=== PATIENT | male | born 1980 | race African-American/Black ===

== ENCOUNTER 2018-06-10 08:32 | Emergency (ER) | payer OTHER ==
[~2018-06-10] VITALS: Ht 185.4 cm; Wt 86.2 kg
[2018-06-10 09:51] LABS: BASOPHILS 1.9 % (0.0-2.0); EOSINOPHILS 1.1 % (0.0-3.0); HEMATOCRIT 39.2 % (42.0-52.0); HEMOGLOBIN 13.9 gm/dL (14.0-18.0); MCHC 35.4 g/dL (28.0-37.0); MONOCYTES 8.3 % (1.0-8.0); PLATELET COUNT 279 thou/uL (150-400); POLYS 56.7 % (36.0-66.0); RBC 4.21 mil/uL (4.50-6.00); RDW 13.2 % (10.5-14.5); WBC 7.1 thou/uL (4.0-11.0)
[2018-06-10 09:59] LABS: CREATININE 0.9 mg/dL (0.7-1.3); POTASSIUM 3.9 mmol/L (3.5-5.1)
[2018-06-10 10:06] LABS: ALBUMIN 4.5 g/dL (3.4-5.0); TOTAL BILIRUBIN 0.6 mg/dL (<0.1-1.0); TOTAL PROTEIN 8.2 g/dL (6.4-8.2)
[2018-06-10 10:08] LABS: APTT 26.4 Seconds (24.5-32.8); PROTIME 10.7 Seconds (9.3-11.4)
[2018-06-10 10:41] VITALS: BP 126/80
== END 2018-06-10 10:42 | disposition home or self-care (01) ==
LOC: ER 08:32
PROVIDERS: Emergency Medicine
DX: K62.89 Other specified diseases of anus and rectum (principal); Z88.8 Allergy status to other drugs, medicaments and biological substances